=== PATIENT | female | born 1960 | race Caucasian/White ===

== ENCOUNTER → 2020-12-21 | Outpatient (CLI) | payer BC, OTHER ==
[~2020-12-21] MED LIST: ASPIRIN EC81 MG PO; ATORVASTATIN CA20 MG PO; BENADRYL 50MG C50 MG PO; BRILINTA 90 MG90 MG PO; BYSTOLIC5 MG PO; DIABETA 5 MG TAB5 MG PO; GLUCOPHAGE 500500 MG PO; HYDROCHLOROTHIA25 MG PO; LISINOPRIL10 MG PO; NITROGLYCERIN0.4 MG SL; SYNTHROID175 MCG PO
== END ==
LOC: KOH-I 15:59
DX: R05 Cough (principal); R06.02 Shortness of breath
CPT/HCPCS: 71046

== ENCOUNTER → 2021-01-06 | Outpatient (CLI) | payer BC, OTHER | LOC: KOH-I 12-28 14:15 | DX: R94.6 Abnormal results of thyroid function studies (principal) | CPT/HCPCS: 76536 ==